=== PATIENT | male | born 1945 | race Caucasian/White ===

== ENCOUNTER → 2016-06-08 | Outpatient (CLI) | payer MEDICARE ==
--- NOTE | 2016-06-08 10:37 | REP ---
Clinical: History of hepatocellular carcinoma. Comparison: 11/21/2015. Findings: The bilateral lung cobian are well-aerated, symmetric, and clear. No acute pulmonary parenchymal consolidation, nodule or mass lesion is appreciated. No pleural effusion/reaction or pneumothorax. Tracheobronchial tree is patent. No obvious axillary, hilar, or mediastinal adenopathy is appreciated. Atherosclerotic changes to the coronary arteries and thoracic aorta noted without cardiomegaly, aortic aneurysm, or pericardial effusion. Surrounding musculoskeletal structures are intact and without focal osseous abnormality. Limited evaluation of the upper abdomen demonstrates dystrophic calcifications within the right lobe of the liver which are less prominent than prior examination and the previously noted hypodense lesion at the dome is not visualized on current examination. Bilateral adrenal glands are normal. Impression: 1. No acute mediastinal or pleuroparenchymal process. 2. Chronic changes include atherosclerotic disease to the coronary arteries and thoracic aorta. 3. Dystrophic calcifications within the liver which appears somewhat less prominent than prior examination. Signed by Rashad Powers MD 06/08/2016 10:29 A
--- NOTE | 2016-06-08 17:14 | REP ---
WHOLE BODY BONE SCAN: Following the intravenous administration of 22 millicuries of technetium 99MMDP, patient's whole body was imaged in the anterior and posterior projections with additional oblique images of the thoracic and pelvic regions performed as well as lateral views of the calvarium. Comparison made with prior study of 11/21/2015. There is again arthritic uptake in the cervical facet joints posteriorly, lower lumbar spine, bilateral knees and feet, bilateral shoulders and sternoclavicular joints. There is no significant change when compared to the prior study. There is no compelling scintigraphic evidence of osseous metastases. Renal and bladder activity are seen. IMPRESSION: No compelling scintigraphic evidence of osseous metastases, stable exam. Signed by Daron Mast MD 06/09/2016 12:11 P
== END ==
LOC: M RAD 09:47
PROVIDERS: ATTEND Internal Medicine Transplant Hepatology
DX: C22.0 Liver cell carcinoma (principal)
CPT/HCPCS: 71250; 78306; A9503

== ENCOUNTER → 2017-03-07 | Outpatient (CLI) | payer MEDICARE ==
[~2017-03-07] MED LIST: GASTROGRAFIN SOLUTION 30ML (Q9963) As Ordered ONE; ISOVUE-370 76% 100ML VIAL (Q9967) As Ordered ONE
--- NOTE | 2017-03-07 12:31 | REP ---
Clinical: Prostate cancer. Staging. Technique: Axial contrast enhanced images from the lung bases to the pubic symphysis using oral and 100 ml Isovue 370 intravenous contrast material with precontrast and delayed images of the abdomen as well as coronal and sagittal re-formations. Findings: Lung bases demonstrate chronic interstitial change along with atherosclerotic changes to the coronary arteries. Liver, spleen, pancreas, bilateral adrenal glands and kidneys appear normal. Evidence for prior cholecystectomy noted. The enteric system is without obstruction or acute inflammatory process. Normal terminal ileum and appendix identified in the right lower quadrant. Pelvis demonstrates scattered sigmoid diverticula. Normal bladder identified. The prostate gland is mildly prominent, measuring 4.5 cm maximal transverse diameter very subtle lymph nodes along the right side of the prostate gland measuring up to 8 mm cannot be excluded (image 138). No ascites. No free air. No further adenopathy seen or obvious mass lesion. Atherosclerotic changes of the aorta and vasculature noted without aneurysm or dissection. Osseous structures demonstrate age-related degenerative changes without discrete focal osseous abnormality to suggest metastatic disease by CT evaluation. Impression: 1. Prostate gland is mildly enlarged and very subtle 8 mm right periprostatic lymph node cannot be excluded. No further findings related to prostate cancer identified. 2. Evidence for prior cholecystectomy. 3. Few scattered sigmoid diverticula without acute diverticulitis. 4. No ascites, significant adenopathy or mass lesion otherwise appreciated. Signed by Rashad Powers MD 03/07/2017 12:23 P
--- NOTE | 2017-03-07 16:33 | REP ---
WHOLE BODY BONE SCAN: Following the intravenous administration of 21.1 millicuries technetium 99M MDP, patient's whole body was imaged in the anterior and posterior projections with additional oblique images of the thoracic and pelvic regions performed as well as lateral views of the calvarium, knees and feet. Comparison is made with prior study 06/08/2016. There is scattered arthritic uptake again seen, specifically at the shoulders, sternoclavicular joints, knees, feet and also scattered throughout the spine. There is no compelling scintigraphic evidence of osseous metastases. Renal and bladder activity are seen. IMPRESSION: Scattered arthritic uptake without compelling scintigraphic evidence of osseous metastases. Signed by Daron Mast MD 03/07/2017 04:45 P
== END ==
LOC: M RAD 09:51
PROVIDERS: ATTEND Specialist
DX: C61 Malignant neoplasm of prostate (principal)
CPT/HCPCS: 74178; 78306; A9503; Q9963; Q9967

== ENCOUNTER → 2018-02-14 | Outpatient (REF) | payer MEDICARE | LOC: M LAB REF 16:03 | DX: C44.329 Squamous cell carcinoma of skin of other parts of face (principal) | CPT/HCPCS: 88305 ==

== ENCOUNTER → 2019-03-02 | Outpatient (CLI) | payer MEDICARE ==
[~2019-03-02] MED LIST changes: -GASTROGRAFIN SOLUTION 30ML (Q9963) As Ordered ONE; -ISOVUE-370 76% 100ML VIAL (Q9967) As Ordered ONE; +PROHANCE 279.3MG/ML 15ML VIAL (A9576) As Ordered ONE; +PROHANCE 279.3MG/ML 5ML VIAL (A9576) As Ordered ONE
--- NOTE | 2019-03-02 16:13 | REP ---
Multi parametric prostate MRI without and with IV gadolinium: History: Malignant neoplasm of the prostate. Comparisons: Comparison CT study March 07, 2017. TECHNIQUE: Using a phased array surface coil, small field of view imaging was acquired using T2-weighted scans in the axial, coronal, and sagittal imaging planes. Small field of view diffusion-weighted sequences are acquired. Small field of view axial T1-weighted scans are acquired dynamically before and after the intravenous administration of 19 mL of ProHance. Imaging is reviewed on the [employer] computer aided detection system. Prostate MRI findings: There is no evidence of extra prostatic disease. No bony metastasis seen. Prostate dimensions are 4.7 x 3.5 x 3.6 cm for a calculated volume of 34.3 mL. There is some heterogeneous enlargement of the central gland consistent with BPH. In the right base posterior peripheral zone, there is a 1.3 x 1.1 x 1.0 cm, 0.8 mL, discrete homogeneous low signal intensity focus confined to the prostate. This has restricted diffusion on diffusion-weighted scans and a type 3 enhancement curve. Clinically significant cancer is felt to be highly likely. This nodule is traced with the [employer] software and can be submitted to [facility] in consideration of possible ultrasound/MR fusion directed biopsy. Impression: Multi parametric prostate MRI study demonstrates a highly suspicious enhancing nodule with restricted diffusion in the right base posterior peripheral zone. No extra prostatic disease is appreciated. Electronically Signed by José Antonio Landa MD 03/02/2019 05:20 P
== END ==
LOC: M RAD 12:37
PROVIDERS: ATTEND Physician Assistant
DX: C61 Malignant neoplasm of prostate (principal)
CPT/HCPCS: 72197; A9576

== ENCOUNTER → 2020-04-11 | Outpatient (CLI) | payer MEDICARE ==
[~2020-04-11] MED LIST changes: -PROHANCE 279.3MG/ML 15ML VIAL (A9576) As Ordered ONE; +PROHANCE 279.3MG/ML 15ML VIAL As Ordered ONE; -PROHANCE 279.3MG/ML 5ML VIAL (A9576) As Ordered ONE; +PROHANCE 279.3MG/ML 5ML VIAL As Ordered ONE
--- NOTE | 2020-04-14 09:58 | REP ---
INDICATION: PROSTATE MONITORING. COMPARISON: 03/02/2019. TECHNIQUE: Using a phased array surface coil, small kbkoi-ve-nybj imaging was acquired using T2 weighted scans in the axial, coronal, and sagittal imaging planes. Small frjhi-kn-oztw diffusion-weighted sequences are acquired. Small drosr-wq-ylcx axial T1 weighted scans are acquired dynamically before and after the intravenous administration of 20 mL of ProHance. Imaging is reviewed using the [employer] computer-aided detection system. FINDINGS: Note is made of a small right inguinal hernia containing fat. No bone lesion is seen. There is no evidence of pelvic adenopathy. The prostate measures 4.5 x 3.6 x 3.7 cm. Total volume is 31.51 cc. These measurements are essentially unchanged. There is again some heterogeneous enlargement of the central gland compatible with BPH. In the right base and upper mid posterior peripheral zone there is again noted a discrete homogeneous low signal nodule on T2 and DWI sequences. There is predominately type 3 enhancement. The area measures approximately 1.8 x 1.0 x 1.7 cm, total volume 1.95 cc. Size is mildly increased since the prior study of 03/02/2019, the measurements at that time were 1.3 x 1.1 x 1.0 cm, volume 0.8 cc. Posterior prostatic capsule at the site of the nodule demonstrates possible involvement and possible mild extraprostatic extension. Again the presence of clinically significant cancer is felt to be highly likely. No new suspicious abnormal signal or abnormal enhancement is seen in the prostate. IMPRESSION: Once again in the right base in upper mid posterior peripheral zone there is a discrete nodule likely representing cancer as discussed above, size appears to have mildly increased since the prior study. Also there is possible mild capsular disruption and mild extraprostatic extension. No new abnormal signal or enhancement seen in the prostate. <Electronically signed by Daron Mast > 04/14/20 [id number]
== END ==
LOC: M RAD 17:10
PROVIDERS: ATTEND Physician Assistant
DX: C61 Malignant neoplasm of prostate (principal)
CPT/HCPCS: 72197; A9576

== ENCOUNTER → 2021-05-26 | Outpatient (CLI) | payer MEDICARE ==
[~2021-05-26] MED LIST changes: +AMLO1TAB24; +CITRTAB18 PO; +METO50TA7; -PROHANCE 279.3MG/ML 15ML VIAL As Ordered ONE; -PROHANCE 279.3MG/ML 5ML VIAL As Ordered ONE; +SILD100T; +TACR1CAP3 PO
== END ==
LOC: M ONCR 08:44
PROVIDERS: ATTEND General Practice
DX: C61 Malignant neoplasm of prostate (principal); Z94.4 Liver transplant status

== ENCOUNTER → 2021-06-23 | Outpatient (CLI) | payer MEDICARE ==
[~2021-06-23] MED LIST changes: +CIPR750T2 PO; +LIDOCAINE 2% MDV 20ML VIAL XX ONE; +LIDOCAINE VISCOUS 2% SOLN 15ML UDC XX ONE; +LORA1TAB4 PO
[2021-06-23 14:45] VITALS: BP 147/93
[2021-06-23 15:30] VITALS: BP 110/68
== END ==
LOC: M ONCR 13:34
PROVIDERS: ATTEND General Practice
DX: C61 Malignant neoplasm of prostate (principal)

== ENCOUNTER → 2021-07-23 | Outpatient (RCR) | payer MEDICARE ==
[~2021-07-23] MED LIST changes: -LIDOCAINE 2% MDV 20ML VIAL XX ONE; -LIDOCAINE VISCOUS 2% SOLN 15ML UDC XX ONE
== END ==
LOC: M ONCR 07-02 07:37
PROVIDERS: ATTEND General Practice
DX: C61 Malignant neoplasm of prostate (principal)

== ENCOUNTER 2021-07-24 10:25 | Outpatient (RCR) | payer MEDICARE | END 2021-08-22 | LOC: M ONCR 10:25 | PROVIDERS: ATTEND General Practice | DX: C61 Malignant neoplasm of prostate (principal) ==

== ENCOUNTER → 2021-10-23 | Outpatient (CLI) | payer MEDICARE | LOC: M ONCR 09:02 | PROVIDERS: ATTEND General Practice | DX: Z08 Encounter for follow-up examination after completed treatment for malignant neoplasm (principal); K86.9 Disease of pancreas, unspecified; Z79.899 Other long term (current) drug therapy; Z85.46 Personal history of malignant neoplasm of prostate; Z88.8 Allergy status to other drugs, medicaments and biological substances; Z92.3 Personal history of irradiation; Z94.4 Liver transplant status ==

== ENCOUNTER → 2022-04-30 | Outpatient (CLI) | payer MEDICARE | LOC: M ONCR 08:25 | PROVIDERS: ATTEND General Practice | DX: C61 Malignant neoplasm of prostate (principal); Z79.899 Other long term (current) drug therapy; Z88.8 Allergy status to other drugs, medicaments and biological substances; Z94.4 Liver transplant status; Z92.3 Personal history of irradiation ==

== ENCOUNTER → 2023-05-02 | Outpatient (CLI) | payer MEDICARE ==
[~2023-05-02] MED LIST changes: +LORA1TAB23 PO; -LORA1TAB4 PO
== END ==
LOC: M ONCR 08:50
PROVIDERS: ATTEND General Practice
DX: C61 Malignant neoplasm of prostate (principal); Z71.2 Person consulting for explanation of examination or test findings; Z94.4 Liver transplant status; Z92.3 Personal history of irradiation; Z88.8 Allergy status to other drugs, medicaments and biological substances; Z79.899 Other long term (current) drug therapy

== ENCOUNTER 2023-11-03 07:16 | Day surgery (SDC) | payer MEDICARE ==
[~2023-11-03] VITALS: Ht 170.2 cm; Wt 92.7 kg
[~2023-11-03 07:16] MED LIST changes: +AMLO1TAB24 PO; +METO50TA7 PO; +THERTAB52 PO
[2023-11-03] MEDS: NS 1,000 ML IV ONE (07:52)
[2023-11-03] MEDS ORDERED: LIDOCAINE 2% 100MG/5ML SDV (FOR ANES.) As Ordered ONE (08:04)
[2023-11-03] MEDS ORDERED: propofoL 200 MG/20 ML VIAL As Ordered ONE (08:04)
[2023-11-03 09:33] VITALS: TEMP 98
[2023-11-03 09:50] VITALS: BP 118/58; O2SAT 93
== END 2023-11-03 10:00 | disposition home or self-care (01) ==
LOC: M OPP 07:16
PROVIDERS: ATTEND Internal Medicine Gastroenterology
DX: Z86.010 Personal history of colon polyps (principal); Z80.0 Family history of malignant neoplasm of digestive organs; D12.4 Benign neoplasm of descending colon; K62.7 Radiation proctitis; I10 Essential (primary) hypertension; Z79.621 Long term (current) use of calcineurin inhibitor; Z79.899 Other long term (current) drug therapy; Z88.6 Allergy status to analgesic agent

== ENCOUNTER → 2024-04-24 | Outpatient (CLI) | payer MEDICARE ==
[~2024-04-24] MED LIST changes: +PROHANCE 279.3MG/ML 15ML VIAL ONE; +PROHANCE 279.3MG/ML 5ML VIAL ONE
== END ==
LOC: M PLAIMG 08:21
PROVIDERS: ATTEND Nurse Practitioner Family
DX: R93.2 Abnormal findings on diagnostic imaging of liver and biliary tract (principal); Z94.4 Liver transplant status
CPT/HCPCS: 74183; A9576

== ENCOUNTER → 2024-05-02 | Outpatient (CLI) | payer MEDICARE ==
[~2024-05-02] MED LIST changes: -PROHANCE 279.3MG/ML 15ML VIAL ONE; -PROHANCE 279.3MG/ML 5ML VIAL ONE
== END ==
LOC: M ONCR 08:28
PROVIDERS: ATTEND General Practice
DX: C61 Malignant neoplasm of prostate (principal); Z94.4 Liver transplant status; Z92.3 Personal history of irradiation; Z79.899 Other long term (current) drug therapy; Z87.440 Personal history of urinary (tract) infections; Z88.8 Allergy status to other drugs, medicaments and biological substances